=== PATIENT | male | born 1965 | race Hispanic/Latino ===

== ENCOUNTER 2018-12-02 10:12 | Inpatient (IN) | payer OTHER ==
[~2018-12-02] VITALS: Ht 165.1 cm; Wt 81.6 kg
[2018-12-02] MEDS ORDERED: ASPIRIN 81 MG CHEW TAB PO ONE (10:45)
[2018-12-02 10:51] LABS: BASOPHILS % 1.2 % (0.0-1.0); EOSINOPHILS # (AUTO) 0.1 (0.0-0.4); HEMATOCRIT 41.1 % (38.2-49.6); HEMOGLOBIN 14.6 g/dL (14.0-18.0); LYMPHOCYTES # (AUTO) 1.6 (1.0-3.2); LYMPHOCYTES % 45.6 % (18.0-39.1); MEAN CORPUSCULAR HEMOGLOBIN 32.4 pg (28-32); MEAN CORPUSCULAR HGB CONC 35.5 g/dL (31-35); MEAN CORPUSCULAR VOLUME 91.1 fL (81-99); MONOCYTES # (AUTO) 0.3 (0.2-0.8); MONOCYTES % 7.8 % (4.4-11.3); NEUTROPHILS # (AUTO) 1.5 (2.1-6.9); NEUTROPHILS % 43.4 % (38.7-80.0); PLATELET COUNT 118 x10e3/uL (140-360); RED BLOOD COUNT 4.51 x10e6/uL (4.3-5.7); RED CELL DISTRIBUTION WIDTH 11.3 % (11.7-14.4)
[2018-12-02 10:57] LABS: INR 1.06; PARTIAL THROMBOPLASTIN TIME 32.9 seconds (23.8-35.5); PROTHROMBIN TIME 14.3 seconds (11.9-14.5)
[2018-12-02 10:59] LABS: AMPHETAMINES SCREEN,URINE NEGATIVE (NEGATIVE); BENZODIAZEPINES SCREEN,URINE NEGATIVE (NEGATIVE); PHENCYCLIDINE SCREEN,URINE NEGATIVE (NEGATIVE)
[2018-12-02] MEDS ORDERED: KETOROLAC TROMETHAMINE 30 MG/ML VIAL IV NR (11:00)
[2018-12-02 11:04] LABS: ALANINE AMINOTRANSFERASE 61 IU/L (0-55); ALBUMIN 4.2 g/dL (3.5-5.0); ALBUMIN/GLOBULIN RATIO 1.2 (0.8-2.0); ALKALINE PHOSPHATASE 99 IU/L (40-150); ANION GAP 18.6 mmol/L (8-16); BLOOD UREA NITROGEN 13 mg/dL (7-26); BUN/CREATININE RATIO 16 (6-25); CARBON DIOXIDE 27 mmol/L (22-29); CHLORIDE 96 mmol/L (98-107); CREATINE KINASE 1470 IU/L (30-200); CREATININE, SERUM 0.83 mg/dL (0.72-1.25); EST GLOMERULAR FILTRATION RATE > 60 ML/MIN (60-); GLUCOSE 118 mg/dL (74-118); POTASSIUM 3.6 mmol/L (3.5-5.1); SODIUM 138 mmol/L (136-145)
[2018-12-02] MEDS ORDERED: SODIUM CHLORIDE 0.9% 1000ML 1,000 ML IV STA (11:22)
[2018-12-02] MEDS ORDERED: OSELTAMIVIR PHOSPHATE 75 MG CAP PO NR (12:00)
[2018-12-02] MEDS ORDERED: LORAZEPAM INJ 2 MG/ML VIAL IV NR (12:00)
--- NOTE | 2018-12-02 12:07 | Diagnostic Imaging Report ---
EXAMINATION: CHEST SINGLE (PORTABLE) INDICATION: Anxious, high blood pressure. COMPARISON: None FINDINGS: TUBES and LINES: None. LUNGS: Lungs are not well inflated. Mild patchy right basilar opacity, likely atelectasis. There is no evidence of lobar pneumonia or pulmonary edema. PLEURA: No pleural effusion or pneumothorax. HEART AND MEDIASTINUM: The cardiomediastinal silhouette is unremarkable. BONES AND SOFT TISSUES: No acute osseous abnormality. UPPER ABDOMEN: No free air under the diaphragm. IMPRESSION: No acute radiographic abnormality. Signed by: Dr. Reuben Dias MD on 12/02/2018 12:04 PM
[2018-12-02] MEDS ORDERED: MULTIVITAMINS- 12 INJECTION 10 ML, FOLIC ACID MDV 5 MG, THIAMINE HCL INJ 100 MG in SODI... IV ONE ×2 (13:15→16:00)
[2018-12-02] MEDS ORDERED: ONDANSETRON HCL INJ 2MG/ML 2ML 2 MG/ML VIAL IV PRN ×2 (13:15)
[2018-12-02] MEDS ORDERED: LORAZEPAM INJ 2 MG/ML VIAL IV PRN (13:15)
--- OUTSIDE RECORDS SUMMARY | 2018-12-02 13:15 | XMS REPORT ---
Author Author [facility] Address Unknown Phone Unavailable Care Team Providers Care Dethistler Operator Name Role Phone Sherly RAPP Unavailable Unavailable Problems This patient has no known problems. Allergies, Adverse Reactions, Alerts This patient has no known allergies or adverse reactions. Medications This patient has no known medications. Results Test Description Test Time Test Comments Text Results Atomic Results Result Comments CHEST SINGLE (PORTABLE) 2018-12-02 12:02:00 [place] [address] Patient Name: MELLO VALDIVIA MR #: [id number] : 1965 Age/Sex: 52/M Req #: [id number] Adm Physician: Ordered by: OFEILA ARAUZ OIL DRILLER Report #: [id number] Location: ER Room/Bed: Procedure: [id number] DX/CHEST SINGLE (PORTABLE) Exam Date: 12/02/18 Exam Time: 1140 REPORT STATUS: Signed EXAMINATION: CHEST SINGLE (PORTABLE) IN DICATION: Anxious, high blood pressure. COMPARISON: None FINDINGS: TUBES and LINES: None. LUNGS: Lungs are not well inflated. Mild patchy right basilar opacity, likely atelectasis. There is no evidence of lobar pneumonia or pulmonary edema. PLEURA: No pleural effusion or pneumothorax. HEART AND MEDIASTINUM: The cardiomediastinal silhouette is unremarkable. BONES AND SOFT TISSUES: No acute osseous abnormality. UPPER ABDOMEN: No free air under the diaphragm. IMPRESSION: No acute radiographic abnormality. Signed by: Dr. Lissa Garcia MD on 12/02/2018 12:04 PM Dictated By: LISSA GARCIA MD [id number] Transcribed By: WILFRIDO on 12/02/18 120 COPY TO: OFELIA ARAUZ NP
[2018-12-02] MEDS: FAMOTIDINE 20 MG/2 ML VIAL IV SCH (13:35)
--- NOTE | 2018-12-02 14:07 | History and Physical ---
CHIEF COMPLAINT: Chest pain and dizziness. HISTORY OF PRESENT ILLNESS: The patient is a 52-year-old man with a history of significant drinking. He drinks at least 2 six-packs a day. Over the last several days, he has noticed worsening heartburn and cough. He has a chest discomfort that is dull and is worse with coughing. He has also had some intermittent dizziness. There is no fever. He has had some agitation. PAST MEDICAL HISTORY: 1. History of hypertension. 2. No documented history of liver disease. PAST SURGICAL HISTORY: Hernia repair. SOCIAL HISTORY: The patient drinks about 2 six-packs a day. He is not an active smoker. He lives with family. FAMILY HISTORY: Noncontributory. ALLERGIES: NO KNOWN DRUG ALLERGIES. REVIEW OF SYSTEMS: The patient is afebrile. He has no headache. He has no neck pain. He is not complaining of any swollen glands. He does have some sore throat. He has intermittent heartburn and indigestion. He has some cough but no dyspnea or wheezing. He did have some intermittent chest discomfort. He has no abdominal pain. He is not complaining of nausea, vomiting. He has no leg swelling. PHYSICAL EXAMINATION: VITAL SIGNS: The patient is afebrile. The blood pressure is 146/80 and the pulse is 76. Respiratory rate is 18. Saturation is 99%. HEENT: Shows no facial swelling or erythema. The nasal mucosa is normal. The oropharynx is normal. LYMPHATIC: Shows no submandibular, cervical, or supraclavicular adenopathy. CARDIAC: Reveals a regular rate and rhythm with normal S1, S2. There are no murmurs or rubs. LUNGS: Auscultation of lungs reveals clear breath sounds bilaterally. There is no wheezing. ABDOMEN: Soft, nontender. There is no rebound or guarding. EXTREMITIES: Show no leg edema or calf tenderness. There is no cyanosis or clubbing. SKIN: Shows no rashes. NEUROLOGIC: Shows the patient to be sedated from Ativan. There are no focal abnormalities. LABORATORY DATA: White blood cell count is 3.4 and hemoglobin is 14.6. The platelet count is 118. The BUN to creatinine ratio is normal. The other electrolytes are within normal limits. The AST is 98, the ALT is 61. The PT is 14.3 and the PTT is 32.9. IMPRESSION: 1. Atypical chest pain. 2. Gastroesophageal reflux. 3. Alcohol-related liver disease. 4. Thrombocytopenia. PLAN: 1. Protonix and Pepcid. 2. Ativan as needed to prevent withdrawals. 3. Ultrasound of abdomen. 4. Cardiac ultrasound and Cardiology evaluation. 5. Thiamine. 6. GI consultation. MD MAGGI Ferris/JOE /[id number]
[2018-12-02 14:24] VITALS: BP 173/91
[2018-12-02 14:55] VITALS: BP 173/91
--- NOTE | 2018-12-02 15:22 | Diagnostic Imaging Report ---
EXAM: Right upper quadrant abdominal ultrasound INDICATION: Right upper quadrant pain COMPARISON: None. TECHNIQUE: Transverse and longitudinal images of the right upper quadrant abdomen were obtained FINDINGS: Liver: Size: 15.7 cm in the right midclavicular line Appearance: Increased echogenicity, smooth contour Mass: No focal masses Gallbladder: No distention, pericholecystic fluid, wall thickening, stone, or reported sonographic Nair's sign. Gallbladder wall measures 0.3 cm. Bile Ducts: Intrahepatic Ducts: No dilatation Extrahepatic Ducts: Common bile duct measures 0.4 cm, no dilatation Pancreas: Limited evaluation due to overlying bowel gas. Kidney: The right kidney measures 10.8 cm without evidence of hydronephrosis or stone. Vessels: Aorta: Visualized portions are normal Inferior Vena Cava: Visualized portions are normal Main Portal Vein: 1.3 cm, normal size with hepatopetal flow. Free Fluid: No ascites or pleural effusion IMPRESSION: Mild hepatomegaly with hepatic steatosis. Signed by: Dr. Reuben Dias MD on 12/02/2018 3:17 PM
[2018-12-02 15:23] VITALS: BP 173/91
[2018-12-02] MEDS: PANTOPRAZOLE 40 MG 10ML VIAL IV SCH (15:33)
[2018-12-02] MEDS: THIAMINE HCL 100 MG TAB PO SCH (15:33)
[2018-12-02] MEDS: CLONIDINE HCL 0.2 MG TAB PO PRN (15:33)
[2018-12-02 19:18] VITALS: BP 148/80
[2018-12-02 19:49] LABS: CREATINE KINASE 958 IU/L (30-200)
[2018-12-02] MEDS: OSELTAMIVIR PHOSPHATE 75 MG CAP PO SCH (21:00)
[2018-12-02] MEDS: SODIUM CHLORIDE 0.9% 1000ML 1,000 ML IV SCH ×2 (21:20→22:01)
[2018-12-02] MEDS: MORPHINE SULFATE INJ 4 MG/ML INJ 1ML IV PRN ×2 (21:21→22:00)
[2018-12-02] MEDS: GUAIFENESIN/CODEINE 10 ML CUP PO PRN (22:30)
[2018-12-03] VITALS (8 sets, daily range): BP systolic 145–182; BP diastolic 79–98
[2018-12-03] MEDS: FAMOTIDINE 20 MG/2 ML VIAL IV SCH ×2 (01:15→12:23)
[2018-12-03] MEDS: ZOLPIDEM TARTRATE 10 MG TAB PO PRN (03:10)
[2018-12-03] MEDS: SODIUM CHLORIDE 0.9% 1000ML 1,000 ML IV SCH ×3 (03:10→21:31)
[2018-12-03 06:27] LABS: BASOPHILS % 0.7 % (0.0-1.0); EOSINOPHILS # (AUTO) 0.1 (0.0-0.4); EOSINOPHILS % 3.1 % (0.0-6.0); HEMATOCRIT 37.1 % (38.2-49.6); HEMOGLOBIN 12.5 g/dL (14.0-18.0); LYMPHOCYTES # (AUTO) 1.5 (1.0-3.2); LYMPHOCYTES % 35.6 % (18.0-39.1); MEAN CORPUSCULAR HEMOGLOBIN 31.6 pg (28-32); MEAN CORPUSCULAR HGB CONC 33.7 g/dL (31-35); MEAN CORPUSCULAR VOLUME 93.9 fL (81-99); MONOCYTES # (AUTO) 0.3 (0.2-0.8); NEUTROPHILS # (AUTO) 2.2 (2.1-6.9); NEUTROPHILS % 52.4 % (38.7-80.0); PLATELET COUNT 71 x10e3/uL (140-360); RED BLOOD COUNT 3.95 x10e6/uL (4.3-5.7); RED CELL DISTRIBUTION WIDTH 11.1 % (11.7-14.4)
[2018-12-03 06:53] LABS: ALANINE AMINOTRANSFERASE 41 IU/L (0-55); ALBUMIN 3.3 g/dL (3.5-5.0); ALBUMIN/GLOBULIN RATIO 1.3 (0.8-2.0); ALKALINE PHOSPHATASE 79 IU/L (40-150); ANION GAP 15.4 mmol/L (8-16); BLOOD UREA NITROGEN 9 mg/dL (7-26); BUN/CREATININE RATIO 13 (6-25); CALCIUM 7.7 mg/dL (8.4-10.2); CARBON DIOXIDE 24 mmol/L (22-29); CHLORIDE 100 mmol/L (98-107); CHOL/HDL RATIO 6.8 (3.9-4.7); CHOLESTEROL 272 MD/DL (0-199); CREATININE, SERUM 0.72 mg/dL (0.72-1.25); EST GLOMERULAR FILTRATION RATE > 60 ML/MIN (60-); GLUCOSE 84 mg/dL (74-118); HDL CHOLESTEROL 40 MG/DL (40-60); MAGNESIUM 1.9 MG/DL (1.3-2.1); POTASSIUM 3.4 mmol/L (3.5-5.1); SODIUM 136 mmol/L (136-145); TRIGLYCERIDES 1129 MG/DL (0-149)
[2018-12-03] MEDS: THIAMINE HCL 100 MG TAB PO SCH (08:50)
[2018-12-03] MEDS: ASPIRIN 81 MG ENTERIC COATED PO SCH (08:50)
[2018-12-03] MEDS: OSELTAMIVIR PHOSPHATE 75 MG CAP PO SCH ×2 (08:50→16:12)
[2018-12-03] MEDS: PANTOPRAZOLE 40 MG 10ML VIAL IV SCH (09:09)
[2018-12-03] MEDS ORDERED: POTASSIUM CHLORIDE 20 MEQ TAB CR PO NR (09:45)
[2018-12-03] MEDS: AMLODIPINE BESYLATE 5 MG TAB PO SCH (12:23)
--- NOTE | 2018-12-03 12:31 | Progress Note ---
DATE: Pulmonary Critical Care progress Note SUBJECTIVE: The patient has less confusion today. He is not having any fevers. OBJECTIVE: VITAL SIGNS: The patient is afebrile. The vital signs are stable. HEENT: Shows no facial swelling or erythema. The oropharynx is normal. LYMPHATIC: Shows no submandibular, cervical, or supraclavicular adenopathy. CARDIAC: Reveals regular rate and rhythm with normal S1, S2. LUNGS: Auscultation of lungs shows clear breath sounds bilaterally. There is no wheezing. ABDOMEN: Soft, nontender. There is no rebound or guarding. EXTREMITIES: Show no leg edema or calf tenderness. RADIOGRAPHIC DATA: Cardiac ultrasound shows a preserved ejection fraction with no significant valvular abnormalities. Abdominal ultrasound shows some mild hepatomegaly. IMPRESSION: 1. Acute alcoholic hepatitis. 2. Atypical chest pain. 3. Hypokalemia. PLAN: 1. Complete cardiac evaluation. 2. Continue to monitor electrolytes and liver enzymes. 3. Hepatitis serologies are pending. 4. Gastroenterology evaluation is pending. 5. I have counseled the patient to avoid alcohol. Yonatan Jack MD [facility]/MODL /[id number]
[2018-12-03 14:31] LABS: CREATINE KINASE MB 3.3 ng/mL (0-5.0)
[2018-12-03] MEDS: CLONIDINE HCL 0.2 MG TAB PO PRN (16:15)
--- NOTE | 2018-12-03 17:37 | Consultation ---
DATE OF CONSULTATION: 12/03/2018 Cardiology Consultation Thank you, Dr. Yonatan Jack for this consultation. The patient came for complaining of some chest pain, atypical in nature come into the hospital. The patient at this time diagnosed with the flu and also rhabdomyolysis and the patient has a history of chronic alcoholism. The patient denies any history of myocardial infarction, history of chest pain before and the patient has history of hypertension. He takes blood pressure medication at home, name of it is not known at this time. The patient had only inguinal hernia surgery done on the right side and the patient was taking his regular medications and blood pressure. The patient is and two children. The patient works for a company. The patient, at this time, clinically no evidence of congestive heart failure. No pericardial rub. EKG shows minor nonspecific ST changes. Laboratory evaluation shows troponins negative. However, the CPK is very high and also, the patient found to have an increased triglycerides more than 1000 mg and also abnormal liver functions. However, at this time, ultrasound does not show any gallbladder issues except his liver is slightly enlarged. At this time, his chest pain is not of a cardiac origin. I did not review the echocardiogram. The preliminary echo report is probably around 50% ejection fraction, I will review the echo. At this time, cardiac-mcmullen, the patient is very stable, probably we have to address triglycerides treatment, maybe we will do it at a later time. It may be because of his alcoholism, triglycerides continues to be high, we had to put him on anti-triglyceride medications like omega and fish oil. At this time, the patient needs to continue present medications for his alcoholic withdrawal and also for his blood pressure, which I agree with. Treatment ordered by Dr. Yonatan Jack. I will review the echocardiogram. IMPRESSION: 1. Atypical chest pain. 2. Nonspecific ST changes. No acute myocardial infarction. 3. Hypertension. 4. Flu. 5. Rhabdomyolysis. 6. Chronic alcoholism and possible mild alcoholic withdrawal. The patient is quite stable. I will continue to follow the patient from cardiac point of view. MD LYRIC GómezB/MODL /[id number]
[2018-12-03] MEDS: GUAIFENESIN/CODEINE 10 ML CUP PO PRN (19:22)
[2018-12-04] VITALS (7 sets, daily range): BP systolic 142–172; BP diastolic 72–98
[2018-12-04] MEDS: ZOLPIDEM TARTRATE 10 MG TAB PO PRN (00:19)
[2018-12-04] MEDS: FAMOTIDINE 20 MG/2 ML VIAL IV SCH ×2 (01:39→15:18)
[2018-12-04] MEDS ORDERED: POTASSIUM CHLORIDE 20 MEQ TAB CR PO SCH (09:00)
[2018-12-04] MEDS: ASPIRIN 81 MG ENTERIC COATED PO SCH (09:33)
[2018-12-04] MEDS: OSELTAMIVIR PHOSPHATE 75 MG CAP PO SCH (09:33)
[2018-12-04] MEDS: AMLODIPINE BESYLATE 5 MG TAB PO SCH (09:33)
[2018-12-04] MEDS: PANTOPRAZOLE 40 MG 10ML VIAL IV SCH (09:33)
[2018-12-04] MEDS: THIAMINE HCL 100 MG TAB PO SCH (09:33)
[2018-12-04] MEDS: SODIUM CHLORIDE 0.9% 1000ML 1,000 ML IV SCH (13:07)
[2018-12-04] MEDS ORDERED: ONDANSETRON HCL 4 MG ORAL DISINTEGRATING TAB PO PRN (15:30)
[2018-12-04] MEDS ORDERED: FENOFIBRATE145 MG PO (15:38)
[2018-12-04] MEDS ORDERED: LISINOPRIL10 MG PO (15:39)
[2018-12-04] MEDS ORDERED: TAMIFLU75 MG PO (15:40)
[2018-12-04] MEDS ORDERED: CEFDINIR300 MG PO (15:40)
[2018-12-04] MEDS ORDERED: ATIVAN1 MG PO (15:41)
--- NOTE | 2018-12-04 17:52 | Progress Note ---
DATE: Cardiology Progress Note SUBJECTIVE: The patient is seen in the room. The patient is awake, alert, ambulating in the room. The patient came with flu and also bronchitis. The patient also drinks alcohol. The patient does not have any acute congestive heart failure. The patient echo EF about 55% to 60%. Cardiac-mcmullen, patient doing well. However, the patient's liver enzymes increased, probably secondary to alcoholism and I discussed the patient that he has to quit drinking. Any time he can be discharged from cardiac point of view. Continue present cardiac medications. I thank Dr. Yonatan Jack for this consultation. Echo EF in 55% to 60%. No cardiac abnormalities are noted at this time. MD BASILIO Gómez/MODL /[id number]
[2018-12-05] MEDS ORDERED: PANTOPRAZOLE SOD 40 MG TABEC PO SCH (07:30)
[2018-12-05] MEDS ORDERED: FAMOTIDINE 20 MG TAB PO SCH (09:00)
--- NOTE | 2018-12-05 14:15 | Discharge Summary ---
DISCHARGE DIAGNOSES: 1. Acute alcoholic hepatitis. 2. Hypertriglyceridemia. 3. Influenza B. 4. Thrombocytopenia. DISCHARGE MEDICATIONS: 1. Fenofibrate 145 mg p.o. daily. 2. Ativan 0.5 mg p.o. q.i.d. p.r.n. 3. Omnicef 300 mg p.o. b.i.d. for seven days. 4. Tamiflu 75 mg p.o. b.i.d. for 5 days. CONSULTING PHYSICIAN: 1. Dr. Dias of Gastroenterology. 2. Dr. Nino of Cardiology. RADIOGRAPHIC DATA: 1. Right upper quadrant ultrasound shows mild hepatomegaly with hepatic steatosis. 2. Echocardiogram shows a preserved ejection fraction of 55% to 60%. There are no significant valvular abnormalities. HISTORY OF PRESENT ILLNESS: The patient is a 52-year-old man. He has a history of significant drinking and has been drinking about a minimal of 12 beers a day. Over the last several days, he noticed worsening heartburn and cough. He noticed some chest discomfort. HOSPITAL COURSE: The patient came to the ER, was noted to have elevated triglyceride along with elevated transaminases consistent with hepatocellular inflammation. He also had a low platelet count. He received IV fluids along with multivitamins and thiamine. He also had a right upper quadrant ultrasound. It showed some mild hepatomegaly. He had a Cardiology evaluation and an echocardiogram. He felt better at the time of discharge and was eager to go home. DISPOSITION: The patient will go home. We emphasized the importance of not drinking. The patient will follow up with Dr. Jack in 7 to 10 days. Yonatan Jack MD [facility]/MODL /[id number]
== END 2018-12-04 16:53 | disposition home or self-care (01) | DRG 433 ==
LOC: ER 10:12 → ERHOLD 13:12 → MED/SURG3 14:13
PROVIDERS: ADMIT Internal Medicine Critical Care Medicine; ATTEND Internal Medicine Critical Care Medicine
DX: K70.30 Alcoholic cirrhosis of liver without ascites (principal); M62.82 Rhabdomyolysis; F10.230 Alcohol dependence with withdrawal, uncomplicated; K70.10 Alcoholic hepatitis without ascites; E78.1 Pure hyperglyceridemia; J11.1 Influenza due to unidentified influenza virus with other respiratory manifestations; K76.0 Fatty (change of) liver, not elsewhere classified; D69.6 Thrombocytopenia, unspecified; R16.0 Hepatomegaly, not elsewhere classified; I10 Essential (primary) hypertension; E87.6 Hypokalemia
CPT/HCPCS: 36415; 71045; 76705; 80053; 80061; 80307; 80320; 82550; 82553; 83518; 83735; 83880; 84484; 85025; 85610; 85730; 86803; 87070; 87400; 93005; 93306; 96376; 99284; J1885; J2060; J2270; J2405; J3411; J7030